=== PATIENT | female | born 1970 | race Caucasian/White ===

== ENCOUNTER 2016-12-14 15:09 | Emergency (ER) | payer MEDICAID ==
[~2016-12-14] VITALS: Ht 165.1 cm; Wt 165.0 kg
[2016-12-14] MEDS ORDERED: ACET-784 PO (15:24)
[2016-12-14] MEDS ORDERED: TraMADol HCL 50 MG TABLET PO ONE (15:45)
[2016-12-14 16:14] VITALS: BP 134/88
== END 2016-12-14 16:26 | disposition home or self-care (01) ==
LOC: EMS 15:10
DX: H66.92 Otitis media, unspecified, left ear (principal); R05 Cough
CPT/HCPCS: 99283

== ENCOUNTER 2017-08-25 23:56 | Emergency (ER) | payer MEDICAID ==
[~2017-08-25] VITALS: Ht 162.6 cm; Wt 76.4 kg
[~2017-08-25 23:56] MED LIST: ACET-784 PO
[2017-08-26] MEDS ORDERED: ACETAMINOPHEN/CODEINE 300-30 MG TABLET PO ONE (01:45)
[2017-08-26] MEDS ORDERED: GuaiFENesin/D-METHORPHAN [SUGAR-FREE] 200-20MG/10 ML SYRUP UDCUP PO ONE (01:45)
[2017-08-26 02:00] VITALS: BP 132/88
== END 2017-08-26 02:20 | disposition home or self-care (01) ==
LOC: EMS 23:57
DX: J40 Bronchitis, not specified as acute or chronic (principal); J06.9 Acute upper respiratory infection, unspecified; J02.9 Acute pharyngitis, unspecified
CPT/HCPCS: 81025; 99283

== ENCOUNTER 2018-03-13 08:48 | Emergency (ER) | payer MEDICAID ==
[~2018-03-13] VITALS: Ht 165.1 cm; Wt 80.9 kg
[2018-03-13] MEDS ORDERED: KETOROLAC TROMETHAMINE 30 MG/ML VIAL IVP ONE (09:30)
[2018-03-13] MEDS ORDERED: ONDANSETRON HCL 4 MG/2 ML VIAL IVP ONE (09:30)
[2018-03-13] MEDS ORDERED: SODIUM CHLORIDE 0.9% 1,000 ML IV ONE (09:30)
[2018-03-13 10:20] LABS: BASOPHILS % (AUTO) 0.8 % (0.0-2.0); EOSINOPHILS % (AUTO) 9.3 % (1.0-6.0); HEMATOCRIT 34.6 % (36-46); HEMOGLOBIN 11.7 g/dL (12.0-16.0); LYMPHOCYTES # (AUTO) 1.6 K/uL (1.0-4.8); LYMPHOCYTES % (AUTO) 20.8 % (22.0-44.0); MEAN CORPUSCULAR HEMOGLOBIN 27.4 pg (26.0-34.0); MEAN CORPUSCULAR HGB CONC 33.8 G/dL (31.0-37.0); MEAN CORPUSCULAR VOLUME 81 fL (80-100); MONOCYTES # (AUTO) 0.6 K/uL (0.1-1.0); MONOCYTES % (AUTO) 7.8 % (2.0-9.0); NEUTROPHILS # (AUTO) 4.8 K/uL (1.8-7.7); NEUTROPHILS % (AUTO) 61.3 % (40.0-70.0); PLATELET COUNT (AUTO) 292 K/uL (150-450); RED BLOOD CELL COUNT(AUTO) 4.26 MIL/uL (4.00-5.20); RED CELL DISTRIBUTION WIDTH 14.6 % (11.5-14.5)
[2018-03-13 10:25] LABS: APPEARANCE,URINE CLEAR (CLEAR)
[2018-03-13 10:26] LABS: BILIRUBIN,URINE NEGATIVE (NEGATIVE); GLUCOSE, URINE (UA) NEGATIVE (NEGATIVE); KETONES,URINE NEGATIVE (NEGATIVE); LEUKOCYTE ESTERASE ,URINE NEGATIVE (NEGATIVE); NITRATE,URINE NEGATIVE (NEGATIVE); OCCULT BLOOD,URINE TRACE (NEGATIVE); PROTEIN,URINE NEGATIVE (NEGATIVE); UROBILINOGEN,URINE 0.2 mg/dL (<=1.0)
[2018-03-13 10:29] LABS: BACTERIA,URINE Rare /HPF (None Seen); RBC,URINE 0-2 /HPF (0-2); SQUAMOUS EPITHELIAL CELL,UR Few /LPF (None Seen); WBC,URINE 0-2 /HPF (0-5)
[2018-03-13 10:32] LABS: ANION GAP 7 mmol/L (8-16); CALCIUM, TOTAL 7.9 mg/dL (8.8-10.5); CARBON DIOXIDE 26 mmol/L (22-29); CHLORIDE 106 mmol/L (98-107); CREATININE 0.81 mg/dL (0.60-1.30); GLOMERULAR FILTR. RATE CALC > 60 mL/min (>60); GLUCOSE,RANDOM 99 mg/dL (70-110); POTASSIUM 3.9 mmol/L (3.5-5.1); SODIUM SERUM 139 mmol/L (136-145); UREA NITROGEN, BLOOD 17 mg/dL (7-18)
[2018-03-13 10:38] LABS: ALANINE AMINOTRANSFERASE 42 U/L (12-78); ALBUMIN 3.4 g/dL (3.4-5.0); ALKALINE PHOSPHATASE 65 U/L (46-116); ASPARTATE AMINOTRANSFERASE 21 U/L (15-37); BILIRUBIN,TOTAL 0.3 mg/dL (0.1-1.0); LIPASE 63 U/L (73-393); TOTAL PROTEIN, SERUM 7.2 g/dL (6.4-8.2)
[2018-03-13 11:30] VITALS: BP 125/59
== END 2018-03-13 11:44 | disposition home or self-care (01) ==
LOC: EMS 08:49
DX: K59.00 Constipation, unspecified (principal)
CPT/HCPCS: 36415; 80053; 81001; 83690; 84703; 85025; 96374; 96375; 99284; J1885; J2405; J7030

== ENCOUNTER 2018-04-09 20:54 | Emergency (ER) | payer MEDICAID ==
[~2018-04-09] VITALS: Ht 162.6 cm; Wt 80.0 kg
[2018-04-09 23:09] LABS: EOSINOPHILS % (AUTO) 10.6 % (1.0-6.0); HEMATOCRIT 34.6 % (36-46); HEMOGLOBIN 11.6 g/dL (12.0-16.0); LYMPHOCYTES # (AUTO) 1.6 K/uL (1.0-4.8); LYMPHOCYTES % (AUTO) 26.4 % (22.0-44.0); MEAN CORPUSCULAR HEMOGLOBIN 27.2 pg (26.0-34.0); MEAN CORPUSCULAR HGB CONC 33.4 G/dL (31.0-37.0); MEAN CORPUSCULAR VOLUME 82 fL (80-100); MONOCYTES # (AUTO) 0.6 K/uL (0.1-1.0); MONOCYTES % (AUTO) 10.1 % (2.0-9.0); NEUTROPHILS # (AUTO) 3.2 K/uL (1.8-7.7); NEUTROPHILS % (AUTO) 51.9 % (40.0-70.0); PLATELET COUNT (AUTO) 320 K/uL (150-450); RED BLOOD CELL COUNT(AUTO) 4.24 MIL/uL (4.00-5.20)
[2018-04-09 23:15] LABS: APPEARANCE,URINE CLEAR (CLEAR); BILIRUBIN,URINE NEGATIVE (NEGATIVE); GLUCOSE, URINE (UA) NEGATIVE (NEGATIVE); KETONES,URINE NEGATIVE (NEGATIVE); LEUKOCYTE ESTERASE ,URINE NEGATIVE (NEGATIVE); NITRATE,URINE NEGATIVE (NEGATIVE); OCCULT BLOOD,URINE NEGATIVE (NEGATIVE); PROTEIN,URINE NEGATIVE (NEGATIVE); UROBILINOGEN,URINE 0.2 mg/dL (<=1.0)
[2018-04-09 23:20] LABS: AMPHET/METH SCREEN,URINE NEGATIVE (NEGATIVE); BARBITURATE SCREEN, URINE NEGATIVE (NEGATIVE); BENZODIAZEPINES SCREEN,URINE NEGATIVE (NEGATIVE); CANNABINOID SCREEN,URINE NEGATIVE (NEGATIVE); COCAINE SCREEN,URINE NEGATIVE (NEGATIVE); METHADONE SCREEN, URINE NEGATIVE (NEGATIVE); OPIATE SCREEN,URINE NEGATIVE (NEGATIVE); PHENCYCLIDINE SCREEN,URINE NEGATIVE (NEGATIVE)
[2018-04-09 23:29] LABS: ANION GAP 5 mmol/L (8-16); CALCIUM, TOTAL 8.6 mg/dL (8.8-10.5); CARBON DIOXIDE 29 mmol/L (22-29); CHLORIDE 106 mmol/L (98-107); CREATININE 0.87 mg/dL (0.60-1.30); GLOMERULAR FILTR. RATE CALC > 60 mL/min (>60); GLUCOSE,RANDOM 100 mg/dL (70-110); POTASSIUM 4.1 mmol/L (3.5-5.1); SODIUM SERUM 140 mmol/L (136-145); UREA NITROGEN, BLOOD 17 mg/dL (7-18)
[2018-04-09 23:34] LABS: ALANINE AMINOTRANSFERASE 38 U/L (12-78); ALBUMIN 3.6 g/dL (3.4-5.0); ALKALINE PHOSPHATASE 75 U/L (46-116); ASPARTATE AMINOTRANSFERASE 18 U/L (15-37); BILIRUBIN,TOTAL 0.2 mg/dL (0.1-1.0); TOTAL PROTEIN, SERUM 7.6 g/dL (6.4-8.2)
[2018-04-09 23:39] LABS: BACTERIA,URINE None Seen /HPF (None Seen); RBC,URINE None Seen /HPF (0-2); SQUAMOUS EPITHELIAL CELL,UR Moderate /LPF (None Seen); WBC,URINE 0-2 /HPF (0-5)
[2018-04-10 00:20] VITALS: BP 128/81
== END 2018-04-10 00:22 | disposition home or self-care (01) ==
LOC: EMS 20:57
DX: M79.602 Pain in left arm (principal)
CPT/HCPCS: 93005; 99285

== ENCOUNTER 2019-02-01 20:42 | Emergency (ER) | payer MEDICAID ==
[~2019-02-01] VITALS: Ht 160 cm; Wt 80.0 kg
[2019-02-01 20:45] VITALS: BP 129/92
[2019-02-01] MEDS ORDERED: KETOROLAC TROMETHAMINE 10 MG TABLET PO ONE (22:00)
== END 2019-02-01 22:07 | disposition home or self-care (01) ==
LOC: EMS 20:44
DX: J06.9 Acute upper respiratory infection, unspecified (principal)

== ENCOUNTER 2019-07-30 22:26 | Emergency (ER) | payer MEDICAID ==
[~2019-07-30] VITALS: Ht 165.1 cm; Wt 80.0 kg
[2019-07-30] MEDS ORDERED: IBUP-2271 PO (22:36)
[2019-07-30 23:45] VITALS: BP 120/81
[2019-07-31] MEDS ORDERED: KETOROLAC TROMETHAMINE 30 MG/ML VIAL IM ONE (00:15)
[2019-07-31] MEDS ORDERED: BENZOCAINE/MENTHOL LOZENGE PO ONE (00:15)
[2019-07-31] MEDS ORDERED: DiphenhydrAMINE HCL 25 MG CAPSULE PO ONE (00:15)
== END 2019-07-31 00:32 | disposition home or self-care (01) ==
LOC: EMS 22:32
DX: J02.9 Acute pharyngitis, unspecified (principal); R51 Headache; Z90.49 Acquired absence of other specified parts of digestive tract; Z98.51 Tubal ligation status
CPT/HCPCS: 96372; 99283; J1885

== ENCOUNTER 2023-10-01 09:37 | Emergency (ER) | payer MEDICAID ==
[~2023-10-01] VITALS: Ht 165.1 cm; Wt 80.0 kg
[~2023-10-01 09:37] MED LIST changes: -ACET-784 PO; +IBUP-45 PO
[2023-10-01 09:46] VITALS: BP 133/79; PULSE 96; RESP 16; TEMP 98.9
[2023-10-01 09:55] LABS: COVID AG,FIA SOURCE NASAL SWAB
[2023-10-01 10:11] LABS: RAPID GROUP A STREP NEGATIVE (NEGATIVE)
[2023-10-01 10:18] LABS: SARS-COV2 (COVID) ANTIGEN,FIA Negative (Negative)
[2023-10-01 10:19] LABS: INFLUENZA TYPE A NEGATIVE FOR TYPE A (NEGATIVE); INFLUENZA TYPE B NEGATIVE FOR TYPE B (NEGATIVE)
[2023-10-01] MEDS ORDERED: AMOXICILLIN TRIHYDRATE 250 MG CAPSULE PO ONE (11:15)
[2023-10-01] MEDS ORDERED: AMOX500T2 PO (11:40)
== END 2023-10-01 11:56 | disposition home or self-care (01) ==
LOC: EMS 09:52
DX: H66.92 Otitis media, unspecified, left ear (principal); Z90.49 Acquired absence of other specified parts of digestive tract; Z98.51 Tubal ligation status; Z20.822 Contact with and (suspected) exposure to COVID-19
CPT/HCPCS: 87430; 87804; 99283

== ENCOUNTER 2025-06-14 06:15 | Emergency (ER) | payer OTHER ==
[~2025-06-14] VITALS: Ht 165.1 cm; Wt 80.9 kg
[~2025-06-14 06:15] MED LIST changes: +AMOX500T2 PO; -IBUP-45 PO
[2025-06-14 06:23] VITALS: TEMP 97.9
[2025-06-14 06:41] LABS: COVID AG,FIA SOURCE NASAL SWAB
[2025-06-14 06:45] LABS: GLUCOMETER DEV NAME(LOC) ER.7; GLUCOSE,POINT OF CARE 129 MG/DL (70-110)
[2025-06-14 06:46] LABS: PLATELET COUNT (AUTO) 364 K/uL (150-450); RED BLOOD CELL COUNT(AUTO) 4.76 MIL/uL (4.00-5.20); RED CELL DISTRIBUTION WIDTH 14.8 % (11.5-14.5); WHITE BLOOD COUNT (AUTO) 7.2 K/uL (4.5-11.0)
[2025-06-14 06:53] LABS: CALCIUM, TOTAL 8.4 mg/dL (8.8-10.5); CREATININE 0.92 mg/dL (0.60-1.30); GLOMERULAR FILTR. RATE CALC > 60 mL/min (>60); GLUCOSE,RANDOM 126 mg/dL (70-110); SODIUM SERUM 138 mmol/L (136-145); UREA NITROGEN, BLOOD 21 mg/dL (7-18)
[2025-06-14 07:01] LABS: TROPONIN I-HIGH SENSITIVITY 4 ng/L (<51)
[2025-06-14] MEDS: LIDOCAINE 5% TRANSDERMAL PATCH TD ONE (07:10)
[2025-06-14] MEDS: ACETAMINOPHEN 500 MG TABLET PO ONE (07:10)
[2025-06-14] MEDS: KETOROLAC TROMETHAMINE 30 MG/ML VIAL IM ONE (07:10)
[2025-06-14 07:14] LABS: APPEARANCE,URINE CLEAR (CLEAR); GLUCOSE, URINE (UA) NEGATIVE (NEGATIVE); LEUKOCYTE ESTERASE ,URINE NEGATIVE (NEGATIVE); NITRATE,URINE NEGATIVE (NEGATIVE); OCCULT BLOOD,URINE NEGATIVE (NEGATIVE); SPECIFIC GRAVITIY, URINE 1.015 (1.003-1.030)
[2025-06-14 07:15] LABS: ASPARTATE AMINOTRANSFERASE 24.0 U/L (15-37); TOTAL PROTEIN, SERUM 7.4 g/dL (6.4-8.2)
[2025-06-14 07:30] VITALS: BP 138/89; PULSE 98; RESP 16; O2SAT 98
[2025-06-14] MEDS ORDERED: ACET-3385 PO (07:30)
[2025-06-14] MEDS ORDERED: LIDO-57 TP (07:30)
[2025-06-14] MEDS ORDERED: IBUP-1492 PO (07:30)
[2025-06-14 07:35] LABS: INFLUENZA TYPE A NEGATIVE FOR TYPE A (NEGATIVE); INFLUENZA TYPE B NEGATIVE FOR TYPE B (NEGATIVE); SARS-COV2 (COVID) ANTIGEN,FIA Negative (Negative)
== END 2025-06-14 07:50 | disposition home or self-care (01) ==
LOC: EMS 06:15
DX: M25.512 Pain in left shoulder (principal); Z98.51 Tubal ligation status; Z90.49 Acquired absence of other specified parts of digestive tract; Z79.899 Other long term (current) drug therapy; Z20.822 Contact with and (suspected) exposure to COVID-19
CPT/HCPCS: 99285; 71045; 87426; 80048; 80076; 81003; 82962; 83690; 83880; 84484; 84703; 85025; 87804; 36415; 93005; 96372; J1885